=== PATIENT | female | born 2000 ===

== ENCOUNTER 2018-07-08 20:07 | Emergency (ER) | payer MEDICAID ==
[2018-07-08 20:10] VITALS: BMI 19.5
[2018-07-08 20:29] VITALS: RESP 18; TEMP 98.4
[2018-07-08] MEDS ORDERED: Sodium Chloride 0.9% 1,000 ML IV STA (20:41)
[2018-07-08 21:28] LABS: BASO # 0.01 K/mm3 (0.0-2.0); BASO % 0.2 % (0.0-3.0); EOS # 0.1 (0.0-0.7); EOS % 2.3 % (1.5-5.0); HEMOGLOBIN 11.4 g/dL (12.0-16.0); LYMPH # 2.3 (1.2-3.4); LYMPH % 37.4 % (22.0-35.0); MEAN CELL VOLUME 87.6 fl (80.0-105.0); MEAN CORPUSCULAR HEMOGLOBIN 28.2 pg (25.0-35.0); MEAN CORPUSCULAR HGB CONC 32.2 g/dl (31.0-37.0); MONO # 0.5 (0.1-0.6); MONO % 8.8 % (1.0-6.0); RBC 4.04 10^6/uL (3.5-6.1); RED CELL DISTRIBUTION WIDTH 13.5 % (11.5-14.5)
[2018-07-08 21:31] LABS: PH,URINE 6.5 (4.7-8.0); URINE BILIRUBIN NEGATIVE (NEGATIVE); URINE BLOOD LARGE (NEGATIVE); URINE GLUCOSE (UA) NEGATIVE (NEGATIVE); URINE LEUKOCYTE ESTERASE TRACE Leu/uL (NEGATIVE); URINE PROTEIN NEGATIVE mg/dL (<30 mg/dL); URINE UROBILINOGEN 0.2 E.U./dL (<1 E.U./dL)
[2018-07-08 21:32] LABS: URINE APPEARANCE SLIGHT-CLOUDY (CLEAR); URINE COLOR YELLOW (YELLOW)
[2018-07-08 21:34] LABS: INR 1.05; PARTIAL THROMBOPLASTIN TIME 41.9 Seconds (26.9-38.3); PROTHROMBIN TIME 11.6 SECONDS (9.4-12.5)
[2018-07-08 21:35] LABS: ALB/GLOB RATIO 1.4 (1.1-1.8); ALBUMIN 4.3 g/dL (3.0-4.8); AST/SGOT 22 U/L (14-36); BLOOD UREA NITROGEN 10 mg/dL (7-21); CALCIUM 9.2 mg/dL (8.4-10.5); GFR NON-AFRICAN AMERICAN > 60; LIPASE 298 U/L (23-300)
[2018-07-08 21:39] LABS: ALT/SGPT < 6 U/L (7-56)
--- NOTE | 2018-07-08 21:44 | ED PDOC ---
Arrival/HPI <Сергей Lees - Last Filed: 07/08/18 23:14> - General Historian: Patient - History of Present Illness Narrative History of Present Illness (Text): 07/08/18 21:39 Mana Kapadia is a 17 year old female, whose past medical history includes C- section, who presents to the ED complaining of suprapubic pain, which started today. Patient states she has a "ball" she can feel at the right side of her C- section site, which she had 4 months ago. Patient complaining of nausea and vomiting today. Otherwise, patient denies any fever, chills, diarrhea, urinary symptoms, other surgeries aside from , or any other complaints. Patient states she is currently menstruating. Symptom Onset: Gradual Symptom Course: Unchanged Activities at Onset: Light Context: Home <Damaris Crooks PA-C - Last Filed: 07/09/18 01:53> - General Chief Complaint: Abdominal Pain Time Seen by Provider: 07/08/18 20:17 Past Medical History - Provider Review Nursing Documentation Reviewed: Yes - Past History Past History: No Previous - Infectious Disease Hx of Infectious Diseases: None - Tetanus Immunization Tetanus Immunization: Up to Date - Cardiac Hx Hypertension: No - Psychiatric Hx Depression: No Hx Substance Use: No - Past Surgical History Past Surgical History: No Previous - Surgical History Hx Section: Yes (x1) Other/Comment: R hand sx - Anesthesia Hx Anesthesia: Yes Hx Anesthesia Reactions: No Hx Malignant Hyperthermia: No - Suicidal Assessment Feels Threatened In Home Enviroment: No <Damaris Crooks PA-C - Last Filed: 07/09/18 01:53> Family/Social History - Physician Review Nursing Documentation Reviewed: Yes Family/Social History: Unknown Family HX Smoking Status: Light Smoker < 10 Cigarettes Daily Hx Alcohol Use: No Hx Substance Use: No Hx Substance Use Treatment: No <Damaris Crooks PA-C - Last Filed: 07/09/18 01:53> Allergies/Home Meds <Сергей Lees - Last Filed: 07/08/18 23:14> <Damaris Crooks PA-C - Last Filed: 07/09/18 01:53> Allergies/Adverse Reactions: Allergies No Known Allergies Allergy (Verified 07/08/18 20:11) Review of Systems - Physician Review All systems were reviewed & negative as marked: Yes - Review of Systems Constitutional: Normal. absent: Fevers ENT: Normal Respiratory: Normal. absent: SOB, Cough Cardiovascular: Normal. absent: Chest Pain Gastrointestinal: Abdominal Pain, Nausea, Vomiting. absent: Diarrhea Genitourinary Female: Normal. absent: Dysuria, Frequency, Hematuria, Urine Output Changes Musculoskeletal: Normal. absent: Back Pain, Neck Pain Skin: Normal. absent: Rash Neurological: Normal. absent: Headache, Dizziness <Damaris Crooks PA-C - Last Filed: 07/09/18 01:53> Physical Exam Vital Signs Temp Pulse Resp BP Pulse Ox 07/08/18 20:15 98.4 F 83 18 107/72 99 <Сергей Lees - Last Filed: 07/08/18 23:14> Vital Signs Reviewed: Yes Vital Signs Temp Pulse Resp BP Pulse Ox 07/08/18 20:15 98.4 F 83 18 107/72 99 Temperature: Afebrile Blood Pressure: Normal Pulse: Regular Respiratory Rate: Normal Appearance: Positive for: Well-Appearing, Non-Toxic, Comfortable Pain Distress: Mild Mental Status: Positive for: Alert and Oriented X 3 - Systems Exam Head: Present: Atraumatic, Normocephalic Pupils: Present: PERRL Extroacular Muscles: Present: EOMI Conjunctiva: Present: Normal Mouth: Present: Moist Mucous Membranes Neck: Present: Normal Range of Motion Respiratory/Chest: Present: Clear to Auscultation, Good Air Exchange. No: Respiratory Distress, Accessory Muscle Use Cardiovascular: Present: Regular Rate and Rhythm, Normal S1, S2. No: Murmurs Abdomen: Present: Tenderness (Moderate tenderness to suprapubic area), Mass/Organomegaly (Palpable mass, 2cm in size, hard and fixed, non-mobile noted to the R side of the patient's scar). No: Distention, Peritoneal Signs, Rebound, Guarding, McBurney's Point Tender, Rovsing's Sign Present, Hernias Back: Present: Normal Inspection Upper Extremity: Present: Normal Inspection. No: Cyanosis, Edema Lower Extremity: Present: Normal Inspection. No: Edema Neurological: Present: GCS=15, CN II-XII Intact, Speech Normal Skin: Present: Warm, Dry, Normal Color. No: Rashes Lymphatic: No: Inguinal Adenopathy Psychiatric: Present: Alert, Oriented x 3, Normal Insight, Normal Concentration <Damaris Crooks PA-C - Last Filed: 07/09/18 01:53> Medical Decision Making - Lab Interpretations Lab Results: PT 11.6 SECONDS (9.4-12.5) 07/08/18 21:00 INR 1.05 07/08/18 21:00 APTT 41.9 Seconds (26.9-38.3) H 07/08/18 21:00 Total Bilirubin 0.3 mg/dL (0.2-1.3) 07/08/18 21:00 AST 22 U/L (14-36) 07/08/18 21:00 ALT < 6 U/L (7-56) L 07/08/18 21:00 Alkaline Phosphatase 61 U/L (38-126) 07/08/18 21:00 Total Protein 7.5 g/dL (5.8-8.3) 07/08/18 21:00 Albumin 4.3 g/dL (3.0-4.8) 07/08/18 21:00 Globulin 3.1 gm/dL 07/08/18 21:00 Albumin/Globulin Ratio 1.4 (1.1-1.8) 07/08/18 21:00 Lipase 298 U/L (23-300) 07/08/18 21:00 Urine Color Yellow (YELLOW) 07/08/18 21:00 Urine Appearance Slight-cloudy (CLEAR) 07/08/18 21:00 Urine pH 6.5 (4.7-8.0) 07/08/18 21:00 Ur Specific [place] 1.015 (1.005-1.035) 07/08/18 21:00 Urine Protein Negative mg/dL (<30 mg/dL) 07/08/18 21:00 Urine Glucose (UA) Negative mg/dL (NEGATIVE) 07/08/18 21:00 Urine Ketones Negative mg/dL (NEGATIVE) 07/08/18 21:00 Urine Blood Large (NEGATIVE) H 07/08/18 21:00 Urine Nitrate Negative (NEGATIVE) 07/08/18 21:00 Urine Bilirubin Negative (NEGATIVE) 07/08/18 21:00 Urine Urobilinogen 0.2 E.U./dL (<1 E.U./dL) 07/08/18 21:00 Ur Leukocyte Esterase Trace Germain/uL (NEGATIVE) H 07/08/18 21:00 Urine RBC 1 - 3 /hpf (0-2) H 07/08/18 21:00 Urine WBC 1 - 3 /hpf (0-6) 07/08/18 21:00 Ur Epithelial Cells 1 - 3 /hpf (0-5) 07/08/18 21:00 - RAD Interpretation Radiology Orders: 07/08/18 20:42 ABD & PELVIS IV CONTRAST ONLY [CT] Stat - Medication Orders Current Medication Orders: Discontinued Medications Sodium Chloride (Sodium Chloride 0.9%) 1,000 mls @ 1,000 mls/hr IV .Q1H STA Stop: 07/08/18 21:40 Last Admin: 07/08/18 21:00 Dose: 1,000 mls/hr eMAR Start Stop Document 07/08/18 21:00 [facility] ([facility] Intravenous Solution Start Date 07/08/18 Start Time 21:00 End Date 07/08/18 End time 22:00 Total Infusion Time 60 Ketorolac Tromethamine (Toradol) 30 mg IVP STAT STA Stop: 07/08/18 20:42 Last Admin: 07/08/18 21:00 Dose: 30 mg MAR Pain Assessment Document 07/08/18 21:00 [facility] (Rec: [facility]08[facility]18 [facility] Pain Reassessment Is this a pain reassessment? No Sleep Is patient sleeping during reassessment? No Presence of Pain Presence of Pain Yes Pain Scale Used Protocol: PSCALES Pain Scale Used Numeric Location Upper or Lower Lower Pain Location Body Site Abdomen Description Intensity of Pain at present 8 IVP Administration Document 07/08/18 21:00 JOL (Rec: 07/08/18 21: [facility] Charges for Administration # of IVP Administrations 1 Ondansetron HCl (Zofran Inj) 4 mg IVP STAT STA Stop: 07/08/18 20:42 Last Admin: 07/08/18 21:00 Dose: 4 mg IVP Administration Document 07/08/18 21:00 JOL (Rec: 07/08/18 21:19 [facility] Charges for Administration # of IVP Administrations 1 <Сергей Lees - Last Filed: 07/08/18 23:14> ED Course and Treatment: 07/08/18 21:39 Previous medical records reviewed, patient seen at [facility] ER on 05/26/18 for pelvic pain, during that visit she was treated and diagnosed with a UTI and PID, her GC cxs were (-). Impression: 17 year old female complaining of suprapubic pain, nausea, and vomiting. Plan: -- CT Abdomen and Pelvis with IV contrast -- Labs, lipase -- UA, urine cultures -- IV fluids -- Zofran -- Toradol -- Reassess and disposition. Progress Notes: Labs reviewed and wnl. 07/08/18 23:07 CT Abdomen and Pelvis: LUNG BASES: The lung bases appear clear. No pleural effusions are seen. LIVER: Unremarkable. GALLBLADDER AND BILE DUCTS: The gallbladder is suboptimally visualized due to contraction. No radioopaque gallstones are seen. No biliary ductal dilatation is evident. PANCREAS: Unremarkable. SPLEEN: Unremarkable. ADRENAL GLANDS: Unremarkable. KIDNEYS, URETERS, AND BLADDER: The kidneys appear within normal limits. There is no hydronephrosis or hydroureter. No urinary calculi are seen. The urinary bladder appeared normal in size and configuration. STOMACH AND BOWEL: Unremarkable appearance of the stomach and bowel. No evidence of bowel obstruction. No evidence suggesting enteritis or colitis. APPENDIX: No evidence of acute appendicitis on CT examination. PERITONEUM: No free fluid. No free air. LYMPH NODES: No lymphadenopathy is evident. REPRODUCTIVE: An IUD appears to be malpositioned. This should be evaluated further. VASCULATURE: No evidence of abdominal aortic aneurysm. BONES: No aggressive appearing osseous lesion. No acute osseous pathology evident. IMPRESSION: 1. There is thought to be a malpositioned IUD present. IUD position should be further evaluated. 2. Suboptimal visualization of the gallbladder subsequent to contraction. Electronically signed on Jul 08, 2018 11:06:35 PM EST by: Mic Marie M.D., EDUARDO Certified By ABR & CBC[employer] Fellowship Trained MRI and CT Specialist 07/09/18 01:18 On re-evaluation, patient is laying in bed comfortably, remains AAOx3, watching TV. Lab and CT results reviewed and d/w the patient, she is using her cell phone, checking messages and pictures as I talk to her. She was advised that a pelvic exam is necessary and a possible US as her IUD is seen to be malpositioned on CT. Pelvic exam : normal external genitalia, no d/c, no active bleeding, +string of IUD noted coming from the cervix without uterine or adnexal tenderness. Female PRIMARY CARE MD, Ebonie, was surface mount technology operator during the exam. US TV ordered. 07/09/18 01:25 US TV : +IUD in the cervixe, not inside the uterus, as per US tech. On re-evaluation, patient laying in bed comfortably, in no acute distress. Preliminary results of the US d/w the patient. Advised that the radiologist will give a full report in the morning and the patient will be called for any discrepancies. Patient instructed to follow-up with her rn clinical appeals in 1-2 days without fail for re- evaluation and to have IUD removed. Advised to take medication as prescribed. Return to the emergency room at any time for any new or worsening symptoms. Patient states she fully agrees with and understands discharge instructions. States that she agrees with the plan and disposition. Verbalized and repeated discharge instructions and plan. I have given the patient opportunity to ask any additional questions. - Lab Interpretations Lab Results: PT 11.6 SECONDS (9.4-12.5) 07/08/18 21:00 INR 1.05 07/08/18 21:00 APTT 41.9 Seconds (26.9-38.3) H 07/08/18 21:00 Total Bilirubin 0.3 mg/dL (0.2-1.3) 07/08/18 21:00 AST 22 U/L (14-36) 07/08/18 21:00 Alkaline Phosphatase 61 U/L (38-126) 07/08/18 21:00 Total Protein 7.5 g/dL (5.8-8.3) 07/08/18 21:00 Albumin 4.3 g/dL (3.0-4.8) 07/08/18 21:00 Globulin 3.1 gm/dL 07/08/18 21:00 Albumin/Globulin Ratio 1.4 (1.1-1.8) 07/08/18 21:00 Lipase 298 U/L (23-300) 07/08/18 21:00 Urine Color Yellow (YELLOW) 07/08/18 21:00 Urine Appearance Slight-cloudy (CLEAR) 07/08/18 21:00 Urine pH 6.5 (4.7-8.0) 07/08/18 21:00 Ur Specific [place] 1.015 (1.005-1.035) 07/08/18 21:00 Urine Protein Negative mg/dL (<30 mg/dL) 07/08/18 21:00 Urine Glucose (UA) Negative mg/dL (NEGATIVE) 07/08/18 21:00 Urine Ketones Negative mg/dL (NEGATIVE) 07/08/18 21:00 Urine Blood Large (NEGATIVE) H 07/08/18 21:00 Urine Nitrate Negative (NEGATIVE) 07/08/18 21:00 Urine Bilirubin Negative (NEGATIVE) 07/08/18 21:00 Urine Urobilinogen 0.2 E.U./dL (<1 E.U./dL) 07/08/18 21:00 Ur Leukocyte Esterase Trace Germain/uL (NEGATIVE) H 07/08/18 21:00 Urine RBC 1 - 3 /hpf (0-2) H 07/08/18 21:00 Urine WBC 1 - 3 /hpf (0-6) 07/08/18 21:00 Ur Epithelial Cells 1 - 3 /hpf (0-5) 07/08/18 21:00 - RAD Interpretation Radiology Orders: 07/08/18 20:42 ABD & PELVIS IV CONTRAST ONLY [CT] Stat Professional Bondsman: Radiologist - Medication Orders Current Medication Orders: Sodium Chloride (Sodium Chloride 0.9%) 1,000 mls @ 1,000 mls/hr IV .Q1H STA Stop: 07/08/18 21:40 Last Admin: 07/08/18 21:00 Dose: 1,000 mls/hr eMAR Start Stop Document 07/08/18 21:00 JOPenelope (Rec: 07/08/18 21:19 [facility] Intravenous Solution Start Date 07/08/18 Start Time 21:00 End Date 07/08/18 End time 22:00 Total Infusion Time 60 Discontinued Medications Ketorolac Tromethamine (Toradol) 30 mg IVP STAT STA Stop: 07/08/18 20:42 Last Admin: 07/08/18 21:00 Dose: 30 mg MAR Pain Assessment Document 07/08/18 21:00 JOL (Rec: 07/08/18 21:19 [facility] Pain Reassessment Is this a pain reassessment? No Sleep Is patient sleeping during reassessment? No Presence of Pain Presence of Pain Yes Pain Scale Used Protocol: PSCALES Pain Scale Used Numeric Location Upper or Lower Lower Pain Location Body Site Abdomen Description Intensity of Pain at present 8 IVP Administration Document 07/08/18 21:00 JOL (Rec: 07/08/18 21:19 [facility] Charges for Administration # of IVP Administrations 1 Ondansetron HCl (Zofran Inj) 4 mg IVP STAT STA Stop: 07/08/18 20:42 Last Admin: 07/08/18 21:00 Dose: 4 mg IVP Administration Document 07/08/18 21:00 JOL (Rec: 07/08/18 21:19 [facility] Charges for Administration # of IVP Administrations 1 <Damaris Crooks PA-C - Last Filed: 07/09/18 01:53> - PA / VICE INVESTIGATOR / Resident Statement PATRICK has reviewed & agrees with the documentation as recorded. <Сергей Lees - Last Filed: 07/08/18 23:14> - PA / VICE INVESTIGATOR / Resident Statement PATRICK has reviewed & agrees with the documentation as recorded. - Scribe Statement The provider has reviewed the documentation as recorded by the Scribe Isha Kaufman All medical record entries made by the Scribe were at my direction and personally dictated by me. I have reviewed the chart and agree that the record accurately reflects my personal performance of the history, physical exam, medical decision making, and the department course for this patient. I have also personally directed, reviewed, and agree with the discharge instructions and disposition. <Damaris Crooks PA-C - Last Filed: 07/09/18 01:53> Disposition/Present on Arrival <Сергей Lees - Last Filed: 07/08/18 23:14> - Present on Arrival Any Indicators Present on Arrival: No History of DVT/PE: No History of Uncontrolled Diabetes: No Urinary Catheter: No History of Decub. Ulcer: No History Surgical Site Infection Following: None - Disposition Have Diagnosis and Disposition been Completed?: Yes Disposition Time: 01:30 Patient Plan: Discharge <Damaris Crooks PA-C - Last Filed: 07/09/18 01:53> - Disposition Diagnosis: Pelvic pain, Malpositioned IUD Disposition: HOME/ ROUTINE Patient Problems: Current Active Problems Problem Status Onset Malpositioned IUD Acute Pelvic pain Acute Condition: STABLE Discharge Instructions (ExitCare): Acute Pelvic Pain Additional Instructions: Thank you for letting us take care of you today. You were treated for pelvic pain, IUD malpositioned. The emergency medical care you received today was directed at your acute symptoms. If you were prescribed any medication, please fill it and take as directed. It may take several days for your symptoms to resolve. Return to the Emergency Department if your symptoms worsen, do not improve, or if you have any other problems. Please contact your rn clinical appeals in 2 days for re-evaluation and follow up. Bring any paperwork you were given at discharge with you along with any medications you are taking to your follow up visit. Our treatment cannot replace ongoing medical care by a primary care provider (PCP) outside of the emergency department. Thank you for allowing the [facility] team to be part of your care today. If you had a urine culture test done : We will call you regarding any positive results If you had an US and CT : A Radiologist will review the ED reading if any change in treatment is needed we will contact you. Prescriptions: RX: Naproxen 500 mg PO BID #30 tab Referrals: Domingo Gallegos [Primary Care Provider] - Follow up with primary Forms: shopp (Kittitian), WORK NOTE, SCHOOL NOTE
[2018-07-08] MEDS ORDERED: Iohexol 300 100 ML IJ ONE (22:02)
[2018-07-09 02:02] VITALS: BP 111/74; PULSE 84; O2SAT 100
--- NOTE | 2018-07-09 09:12 | CT ---
Date of service: 07/08/2018 PROCEDURE: CT Abdomen and Pelvis with contrast HISTORY: Suprapubic pain, palpable mass to R suprapubic are COMPARISON: None available. TECHNIQUE: CT scan of the abdomen and pelvis was performed after administration of intravenous contrast. Oral contrast was not administered. Coronal and sagittal reformatted images were obtained. Contrast dose: 100 mL Omnipaque 300 Radiation dose: Total exam DLP = 233.35 mGy-cm. This CT exam was performed using one or more of the following dose reduction techniques: Automated exposure control, adjustment of the mA and/or kV according to patient size, and/or use of iterative reconstruction technique. FINDINGS: LOWER THORAX: The visualized lungs are clear. LIVER: Mild hepatomegaly and homogeneous enhancement. There is mild periportal edema. No gross lesion or ductal dilatation. GALLBLADDER AND BILE DUCTS: The gallbladder is contracted. PANCREAS: Normal in size with homogeneous enhancement. No gross lesion or ductal dilatation. SPLEEN: Normal in size and appearance. ADRENALS: No discrete nodule. KIDNEYS AND URETERS: Normal in size with homogeneous enhancement. No hydronephrosis. No solid mass. VASCULATURE: No aortic aneurysm. There are no aortic atherosclerotic calcifications or mural plaque present. BOWEL: Evaluation of the bowel is limited in the absence of oral contrast. The small bowel loops are normal in caliber. There is moderate amount of stool in the ascending colon and fecalization of distal small bowel loops with mild dilatation of the distal small bowel. There is large amount of stool in the rectum.. No bowel wall thickening or obstruction. APPENDIX: Normal appendix. PERITONEUM: No free fluid. No free air. LYMPH NODES: No enlarged lymph nodes. BLADDER: Well distended and normal in appearance. REPRODUCTIVE: The uterus is normal in size and retroverted. An intrauterine device is identified in the lower uterine segment. BONES: No acute fracture. Within normal limits for the patient's age. OTHER FINDINGS: None. IMPRESSION: 1. Mild periportal edema, nonspecific and could be have hepatic and systemic etiologies, including hepatitis. Clinical follow-up is advised. 2. An intrauterine device is malpositioned in the lower uterine segment. 3. Large amount of stool in the ascending colon and rectum and fecalization of distal small bowel contents most compatible with chronic stasis. A preliminary report was provided by [employer]. The final report is tagged to the PA review folder.
--- NOTE | 2018-07-09 09:46 | US ---
Date of service: 07/09/2018 HISTORY: pelvic pain, IUD malpositioned on CT COMPARISON: CT abdomen and pelvis performed earlier the same day. TECHNIQUE: Transvaginal pelvic ultrasound was performed. FINDINGS: UTERUS: Measures 8.8 x 4.8 x 5.9 cm. Retroflexed.. No fibroid or other mass lesion seen. ENDOMETRIUM: Measures 9.3 mm in diameter. Unremarkable. CERVIX: An IUD is identified in the cervical canal. The cervix measures 4.1 cm. RIGHT OVARY: Measures 3.4 x 2.6 x 3.1 cm. No solid mass. Normal flow. LEFT OVARY: Measures 2.5 x 2.2 x 3.0 cm. No solid mass. Normal flow. FREE FLUID: There is moderate amount of free fluid in the pelvis. OTHER FINDINGS: None. IMPRESSION: Intrauterine device is mild position in the cervical canal. Moderate amount of free fluid in the pelvis of uncertain etiology but may be physiologic or related to cyst rupture. A preliminary report was provided by [employer].
== END 2018-07-09 01:50 | disposition home or self-care (01) ==
LOC: ED 20:07
DX: R10.2 Pelvic and perineal pain (principal); T83.32XA Displacement of intrauterine contraceptive device, initial encounter
CPT/HCPCS: 74177; 76830; 80053; 81001; 81025; 83690; 83735; 85025; 85610; 85730; 87086; 96361; 96374; 96375; 99285; J1885; J2405; J7030; Q9967